=== PATIENT | male | born 1945 | race Caucasian/White ===

== ENCOUNTER 2017-09-09 11:37 | Emergency (ER) | payer MEDICARE ==
[~2017-09-09] VITALS: Ht 167.6 cm; Wt 86.5 kg
[~2017-09-09 11:37] MED LIST: ALLO100T PO; AMLO5TAB2 PO; APIX5TAB PO; ASPI1TAB69 PO; CHOL50006; FENO145T2 PO; FISH1000; K-TA10TA PO; LISI10TA3 PO; METF500T PO; TAMS0.4C4 PO
[2017-09-09 11:44] VITALS: BP 177/81; PULSE 70; RESP 16; TEMP 97.5; O2SAT 95
[2017-09-09] MEDS ORDERED: ASPI1TAB57 PO (11:57)
[2017-09-09] MEDS ORDERED: ASPI81TA19 (11:57)
[2017-09-09] MEDS ORDERED: ACETAMINOPHEN/HYDROcodone 325 MG/5 MG TAB PO ONE (13:30)
[2017-09-09 13:48] LABS: BILIRUBIN, URINE NEG (NEG); BLOOD, URINE NEG (NEG); GLUCOSE,URINE 500 mg/dL (NEG); KETONE, URINE NEG (NEG); NITRITE,URINE NEG (NEG); URINE COLOR YELLOW (YELLW/STRAW); URINE LEUKOCYTE ESTERASE NEG (NEG)
[2017-09-09 13:53] LABS: RBC, URINE 0-3 /hpf (0-3); SQUAMOUS EPITHELIAL CELL URINE 0-5 /hpf (0-5); WBC, URINE 0-2 /hpf (0-5)
--- NOTE | 2017-09-09 14:15 | RADRPT ---
EXAM DATE/TIME: 09/09/2017 13:38 [place] COMPARISON: CT ABDOMEN & PELVIS W/O CONTRAST, April 04, 2016, 4:58. INDICATIONS : Right flank pain. Evaluate for renal calculi. ORAL CONTRAST: No oral contrast ingested. RADIATION DOSE: 11.50 CTDIvol (mGy) MEDICAL HISTORY : Renal calculi. Cerebrovascular disease. Diabetes mellitus type 2.Hypertension. SURGICAL HISTORY : Cholecystectomy. Partial nephrectomy. ENCOUNTER: Initial ACUITY: 1 day PAIN SCALE: 9/10 LOCATION: Right flank TECHNIQUE: Volumetric scanning of the abdomen and pelvis was performed. Using automated exposure control and ad justment of the mA and/or kV according to patient size, radiation dose was kept as low as reasonably achievable to obtain optimal diagnostic quality images. DICOM format image data is available electro nically for review and comparison. FINDINGS: LOWER LUNGS: The visualized lower lungs are clear. LIVER: Homogeneous density without lesion. There is no dilation of the biliary tree. Cholecystectomy clips. SPLEEN: Normal size without lesion. PANCREAS: Within normal limits. KIDNEYS: Normal in size and shape. There is no stone, or hydronephrosis. There is a peripherally calcified ma ss in the lower pole left kidney with some central fat unchanged from the previous study. There is no evidence of any acute stone or obstruction ADRENAL GLANDS: Within normal limits. VASCULAR: There is no aortic aneurysm. BOWEL/MESENTERY: The stomach, small bowel, and colon demonstrate no acute abnormality. There is no free intraperitone al air or fluid. ABDOMINAL WALL: Within normal limits. RETROPERITONEUM: There is no lymphadenopathy. BLADDER: No wall thickening or mass. REPRODUCTIVE: Within normal limits. INGUINAL: There is no lymphadenopathy or hernia. MUSCULOSKELETAL: Within normal limits for patient age. CONCLUSION: Peripherally calcified mass lower pole left kidney is unchanged. No active renal calculus is identifi ed. There is no evidence of renal obstruction. The bowel gas pattern is unremarkable. Status post cho lecystectomy. Eldon Canales MD on September 09, 2017 at 14:10 Board Certified Radiologist. This report was verified electronically.
--- NOTE | 2017-09-09 14:19 | PD ---
HPI Chief Complaint: Pain: Acute or Chronic Time Seen by Provider: 12:32 Travel History International Travel<30 days: No Contact w/Intl Traveler<30days: No Traveled to known affect area: No History of Present Illness HPI 72-year-old male here with right sided low back pain worse of the last 2 days. He reports pain has been present for "weeks". Denies specific injury or trauma. No fever, chills, incontinence, saddle anesthesia, paresthesia or weakness of the extremities. Pain is worse with range of motion and slightly relieved with rest. He does have a history of kidney stones although he reports this pain is different. Pain originates in the right low back and occasionally radiates down into the thigh. Described as sharp. Symptom severity is moderate. PFSH Past Medical History Hx Anticoagulant Therapy: Yes (asa 81mg) Arthritis: Yes Blood Disorders: No Cancer: No Cardiovascular Problems: Yes (htn on meds) High Cholesterol: Yes Cerebrovascular Accident: Yes (cva) Diabetes: Yes (type 2) Patient Takes Glucophage: Yes Diminished Hearing: No Endocrine: Yes Gastrointestinal Disorders: Yes (Colon polyps ) Gout: Yes Genitourinary: Yes Hypertension: Yes Immune Disorder: No Implanted Vascular Access Dvce: No Kidney Stones: Yes Musculoskeletal: No Neurologic: Yes Psychiatric: No Reproductive: No Respiratory: No Immunizations Current: Yes Influenza Vaccination: Yes PNEUMOCCOCAL Vaccine (Year): 1 ?: Not Past Surgical History Cholecystectomy: Yes Genitourinary Surgery: Yes ((L) partial nephrectomy, pocket of stones removed ) Neurologic Surgery: No Pacemaker: No Tonsillectomy: Yes Other Surgery: Yes (Cyst removal from breast as teenager,bladder scope) Social History Alcohol Use: Yes (Occ. mix drinks) Tobacco Use: No (quit thirty years ago- cigs) Substance Use: No Allergies-Medications (Allergen,Severity, Reaction): Coded Allergies: doxycycline (Unverified Allergy, Severe, YEAST, RASH, 09/09/17) minocycline (Unverified Allergy, Severe, YEAST, RASH, 09/09/17) tigecycline (Unverified Allergy, Severe, YEAST, RASH, 09/09/17) buspirone (Unverified Adverse Reaction, Severe, 09/09/17) diclofenac (Unverified Adverse Reaction, Intermediate, Stomach upset, 09/09) etodolac (Unverified Adverse Reaction, Intermediate, Stomach upset, ) flurbiprofen (Unverified Adverse Reaction, Intermediate, Stomach upset, ) ibuprofen (Unverified Adverse Reaction, Intermediate, Stomach upset, ) indomethacin (Unverified Adverse Reaction, Intermediate, Stomach upset, ) ketoprofen (Unverified Adverse Reaction, Intermediate, Stomach upset, 09/09) ketorolac (Unverified Adverse Reaction, Intermediate, Stomach upset, ) naproxen (Unverified Adverse Reaction, Intermediate, Stomach upset, ) oxaprozin (Unverified Adverse Reaction, Intermediate, Stomach upset, ) atorvastatin (Unverified Adverse Reaction, Unknown, 09/09/17) fenofibrate (Unverified Adverse Reaction, Unknown, 09/09/17) Reported Meds & Prescriptions Reported Meds & Active Scripts Active Reported Aspirin 81 (Aspirin) 81 Mg Tabdr 81 Mg PO DAILY Tamsulosin (Tamsulosin HCl) 0.4 Mg Cap 0.4 Mg PO HS Metformin (Metformin HCl) 500 Mg Tab 500 Mg PO BIDPC With meals Lisinopril 10 Mg Tab 10 Mg PO DAILY K-Tab (Potassium Chloride) 10 Meq Tab 10 Meq PO DAILY Fish Oil ([place]-3 Fatty Acids) 1,000 Mg Cap Fenofibrate 145 Mg Tab 145 Mg PO DAILY Eliquis (Apixaban) 5 Mg Tab 5 Mg PO BID Amlodipine (Amlodipine Besylate) 5 Mg Tab 5 Mg PO DAILY Allopurinol 100 Mg Tab 100 Mg PO DAILY Review of Systems Except as stated in HPI: all other systems reviewed are Neg General / Constitutional: No: Fever Eyes: No: Visual changes HENT: No: Headaches Cardiovascular: No: Chest Pain or Discomfort Respiratory: No: Shortness of Breath Gastrointestinal: No: Abdominal Pain Genitourinary: No: Dysuria Physical Exam Narrative GENERAL: Alert and well-appearing 72-year-old male. Appears uncomfortable when repositioning in bed SKIN: Warm and dry. No rash HEAD: Normocephalic. EYES: No scleral icterus. No injection or drainage. NECK: Supple, trachea midline. CARDIOVASCULAR: Regular rate and rhythm without murmurs, gallops, or rubs. RESPIRATORY: Breath sounds equal bilaterally. No accessory muscle use. GASTROINTESTINAL: Abdomen soft, non-tender, nondistended. MUSCULOSKELETAL: No cyanosis, or edema. Normal strength and sensation in the lower extremities BACK: Tenderness in the right flank region. No midline spine tenderness. Data Data Last Documented VS Vital Signs Date Time Temp Pulse Resp B/P (MAP) Pulse Ox O2 Delivery O2 Flow Rate FiO2 09/09/17 11:44 97.5 70 16 177/81 (113) 95 Orders Orders Urinalysis - C+S If Indicated (09/09/17 13:27) Ct Abd/Pel W/O Iv Contrast (09/09/17 13:27) Acetamin-Hydrocod 325-5 Mg ([place] 5-325 (09/09/17 13:30) Labs Laboratory Tests Test 09/09/17 13:35 Urine Color YELLOW Urine Turbidity CLEAR Urine pH 6.0 Urine Specific [place] 1.020 Urine Protein NEG mg/dL Urine Glucose (UA) 500 mg/dL Urine Ketones NEG mg/dL Urine Occult Blood NEG Urine Nitrite NEG Urine Bilirubin NEG Urine Urobilinogen 1.0 MG/DL Urine Leukocyte Esterase NEG Urine RBC 0-3 /hpf Urine WBC 0-2 /hpf Urine Squamous Epithelial Cells 0-5 /hpf Microscopic Urinalysis Comment CULT NOT INDICATED MDM Medical Decision Making Medical Screen Exam Complete: Yes Emergency Medical Condition: Yes Differential Diagnosis Sciatica, lumbar strain, nephrolithiasis, pyelonephritis Narrative Course 72-year-old male here with right flank/low back pain for several weeks. He is well-appearing. Vital signs are stable. He was given a dose of [place] and observed. UA is negative for infection. CT with no acute findings. All findings were discussed with patient. On reexam he is reporting symptom improvement. he is stable and ready for discharge. Diagnosis Primary Impression: Flank pain Referrals: Primary Care Physician Additional Instructions: medication as directed. Follow-up with her primary doctor. Return if you have new or worsening symptoms. Scripts Hydrocodone-Acetaminophen ([place]) 5 Mg-325 Mg Tab 1 TAB PO Q6H Y for PAIN, #12 TAB 0 Refills Prov: Amrita Lange 09/09/17 Disposition: 01 DISCHARGE HOME Condition: Stable Amrita Lange Sep 09, 2017 14:18
[2017-09-09] MEDS ORDERED: NORC5TAB PO (14:25)
== END 2017-09-09 14:43 | disposition home or self-care (01) ==
LOC: PHEFT 11:37
DX: R10.9 Unspecified abdominal pain (principal); M54.5 Low back pain; M19.90 Unspecified osteoarthritis, unspecified site; I10 Essential (primary) hypertension; E11.9 Type 2 diabetes mellitus without complications; M10.9 Gout, unspecified; Z79.82 Long term (current) use of aspirin; Z87.442 Personal history of urinary calculi; Z86.73 Personal history of transient ischemic attack (TIA), and cerebral infarction without residual deficits
CPT/HCPCS: 74176; 81001; 99284